=== PATIENT | female | born 1990 | race Two or more races ===

== ENCOUNTER 2018-09-18 11:05 | Outpatient (CLI) | payer OTHER ==
[~2018-09-18] VITALS: Ht 154.9 cm; Wt 67.3 kg
[~2018-09-18 11:05] MED LIST: MUPI22OI2 NS
[2018-09-18 11:39] VITALS: BP 114/55
[2018-09-18 11:48] LABS: MICROSCOPIC INDICATED
[2018-09-18] MEDS ORDERED: PREN1TAB10 PO (13:05)
[2018-09-18] MEDS ORDERED: ACET325T14 PO (13:06)
== END 2018-09-18 13:17 | disposition home or self-care (01) ==
LOC: LDOP 11:05
PROVIDERS: ATTEND Obstetrics & Gynecology
DX: O26.893 Other specified pregnancy related conditions, third trimester (principal); R10.9 Unspecified abdominal pain
CPT/HCPCS: 36415; 59025; 81001; 82731; 87086; 99201; G0463

== ENCOUNTER 2018-11-10 16:23 | Outpatient (CLI) | payer OTHER ==
[~2018-11-10] VITALS: Ht 154.9 cm; Wt 70.4 kg
[~2018-11-10 16:23] MED LIST changes: +ACET325T14 PO; +PREN1TAB10 PO
[2018-11-10 16:30] VITALS: BP 110/62
== END 2018-11-10 17:08 | disposition home or self-care (01) ==
LOC: LDOP 16:23
PROVIDERS: ATTEND Obstetrics & Gynecology
DX: O26.893 Other specified pregnancy related conditions, third trimester (principal); M54.9 Dorsalgia, unspecified; Z3A.37 37 weeks gestation of pregnancy
CPT/HCPCS: 59025; 99211; G0463

== ENCOUNTER 2018-11-16 08:58 | Outpatient (CLI) | payer OTHER ==
[~2018-11-16] VITALS: Ht 154.9 cm; Wt 70.0 kg
[2018-11-16 09:04] VITALS: BP 100/58
[2018-11-16] MEDS ORDERED: NITR100C56 PO (09:08)
== END 2018-11-16 09:35 | disposition home or self-care (01) ==
LOC: LAB 08:58 → LDOP 09:35
PROVIDERS: ATTEND Obstetrics & Gynecology
DX: O36.8130 Decreased fetal movements, third trimester, not applicable or unspecified (principal); Z3A.38 38 weeks gestation of pregnancy
CPT/HCPCS: 59025; 99211; G0463

== ENCOUNTER → 2019-08-29 | Outpatient (CLI) | payer OTHER, MEDICAID ==
[~2019-08-29] MED LIST changes: +DOCU-131 PO; +IBUP-1222 PO; +NITR100C56 PO; +OXYC-302 PO
== END | disposition home or self-care (01) ==
LOC: CFH 09:05
PROVIDERS: ATTEND Family Medicine
DX: C43.72 Malignant melanoma of left lower limb, including hip (principal)
CPT/HCPCS: 71046

== ENCOUNTER 2021-06-18 12:50 | Outpatient (CLI) | payer OTHER, MEDICAID ==
[~2021-06-18 12:50] MED LIST changes: -OXYC-302 PO; +OXYC1TAB12 PO
[2021-06-18] MEDS ORDERED: GADOTERATE 5 MMOL/10ML SYR ONE (13:30)
== END 2021-06-18 23:59 | disposition home or self-care (01) ==
LOC: CFH 12:50
PROVIDERS: ATTEND Family Medicine
DX: R22.42 Localized swelling, mass and lump, left lower limb (principal)
CPT/HCPCS: 73720; A9575